=== PATIENT | male | born 1990 | race African-American/Black ===

== ENCOUNTER 2022-08-21 15:55 | Outpatient (CLI) | payer OTHER ==
[~2022-08-21] VITALS: Ht 172.7 cm; Wt 87.7 kg
[2022-08-21 15:55] VITALS: BP 133/77
[2022-08-21] MEDS ORDERED: VEDOLIZUMAB 300 MG in NS 250 ML IV ONE (16:00)
== END 2022-08-21 17:25 | disposition home or self-care (01) ==
LOC: M INFU 15:55
PROVIDERS: ATTEND Internal Medicine Gastroenterology
DX: K50.10 Crohn's disease of large intestine without complications (principal)
CPT/HCPCS: 96365; J3380

== ENCOUNTER 2022-09-04 15:10 | Outpatient (CLI) | payer OTHER ==
[~2022-09-04] VITALS: Ht 172.7 cm; Wt 88.6 kg
[2022-09-04] MEDS ORDERED: VEDOLIZUMAB 300 MG in NS 250 ML IV ONE (16:00)
[2022-09-04 16:16] VITALS: BP 144/74
[2022-09-04 17:03] VITALS: BP 166/72
== END 2022-09-04 17:05 | disposition home or self-care (01) ==
LOC: M INFU 15:10 → EDUNIT# 16:00 → M INFU 17:05
PROVIDERS: ATTEND Internal Medicine Gastroenterology
DX: K50.10 Crohn's disease of large intestine without complications (principal)
CPT/HCPCS: 96365; J3380

== ENCOUNTER 2022-10-02 16:24 | Outpatient (CLI) | payer OTHER ==
[~2022-10-02] VITALS: Ht 172.7 cm; Wt 91.0 kg
[2022-10-02] MEDS ORDERED: VEDOLIZUMAB 300 MG in NS 250 ML IV ONE (16:30)
[2022-10-02 16:33] VITALS: BP 146/95
[2022-10-02 17:19] VITALS: BP 136/88
== END 2022-10-02 17:20 | disposition home or self-care (01) ==
LOC: M INFU 16:24
PROVIDERS: ATTEND Internal Medicine Gastroenterology
DX: K50.10 Crohn's disease of large intestine without complications (principal)
CPT/HCPCS: 96365; J3380

== ENCOUNTER 2022-11-27 16:05 | Outpatient (CLI) | payer OTHER ==
[~2022-11-27] VITALS: Ht 172.7 cm; Wt 91.0 kg
[~2022-11-27 16:05] MED LIST: VEDOLIZUMAB 300 MG in NS 250 ML IV ONE
[2022-11-27 16:20] VITALS: BP 130/78
[2022-11-27 16:55] VITALS: BP 105/51
== END 2022-11-27 17:01 | disposition home or self-care (01) ==
LOC: M INFU 16:05
PROVIDERS: ATTEND Internal Medicine Gastroenterology
DX: K50.10 Crohn's disease of large intestine without complications (principal)
CPT/HCPCS: 96365; J3380

== ENCOUNTER 2023-01-22 16:04 | Outpatient (CLI) | payer OTHER ==
[~2023-01-22] VITALS: Ht 172.7 cm; Wt 91.0 kg
[2023-01-22 16:26] VITALS: BP 134/69
[2023-01-22 17:19] VITALS: BP 148/63
== END 2023-01-22 17:30 | disposition home or self-care (01) ==
LOC: M INFU 16:04
PROVIDERS: ATTEND Internal Medicine Gastroenterology
DX: K50.10 Crohn's disease of large intestine without complications (principal)
CPT/HCPCS: 96365; J3380

== ENCOUNTER 2023-03-19 14:45 | Outpatient (CLI) | payer OTHER ==
[~2023-03-19] VITALS: Ht 172.7 cm; Wt 89.0 kg
[2023-03-19] MEDS ORDERED: VEDOLIZUMAB 300 MG in NS 250 ML IV ONE (15:00)
[2023-03-19 15:12] VITALS: BP 134/68
== END 2023-03-19 15:30 | disposition home or self-care (01) ==
LOC: M INFU 14:45 → EDUNIT# 16:00
PROVIDERS: ATTEND Internal Medicine Gastroenterology
DX: K50.10 Crohn's disease of large intestine without complications (principal)
CPT/HCPCS: 96365; J3380

== ENCOUNTER 2023-09-13 13:00 | Outpatient (CLI) | payer OTHER ==
[~2023-09-13 13:00] MED LIST changes: +ALBUTEROL SULFATE 2.5MG/0.5ML INH NEB SOLN INH PRN; +EPINEPHrine INJ 1 MG/ML 1ML AMP IM PRN; +NS 1,000 ML IV SCH; +diphenhydrAMINE 50MG/ML VIAL IV PRN; +methylPREDNISolone 125MG 2ML VIAL IV PRN
[2023-09-13 13:22] VITALS: BP 139/60; O2SAT 96
[2023-09-13 14:30] VITALS: BP 132/56; O2SAT 98
== END 2023-09-13 14:40 | disposition home or self-care (01) ==
LOC: M INFU 13:00
PROVIDERS: ATTEND Internal Medicine Gastroenterology
DX: K50.10 Crohn's disease of large intestine without complications (principal)
CPT/HCPCS: 96365; J3380

== ENCOUNTER 2023-11-08 13:16 | Outpatient (CLI) | payer OTHER ==
[~2023-11-08] VITALS: Ht 175.3 cm; Wt 90.0 kg
[~2023-11-08 13:16] MED LIST changes: -ALBUTEROL SULFATE 2.5MG/0.5ML INH NEB SOLN INH PRN; -EPINEPHrine INJ 1 MG/ML 1ML AMP IM PRN; -NS 1,000 ML IV SCH; -diphenhydrAMINE 50MG/ML VIAL IV PRN; -methylPREDNISolone 125MG 2ML VIAL IV PRN
[2023-11-08 13:40] VITALS: BP 134/69; O2SAT 99
[2023-11-08 14:38] VITALS: BP 145/86; O2SAT 100
== END 2023-11-08 14:45 | disposition home or self-care (01) ==
LOC: M INFU 13:16
PROVIDERS: ATTEND Internal Medicine Gastroenterology
DX: K50.10 Crohn's disease of large intestine without complications (principal)
CPT/HCPCS: 96365; J3380

== ENCOUNTER 2024-01-03 08:35 | Outpatient (CLI) | payer OTHER ==
[~2024-01-03] VITALS: Ht 175.3 cm; Wt 90.9 kg
[2024-01-03 08:40] VITALS: BP 138/64; TEMP 96.4; O2SAT 99
[2024-01-03] MEDS: VEDOLIZUMAB 300 MG in NS 250 ML IV ONE (09:08)
[2024-01-03 09:46] VITALS: BP 132/60; O2SAT 98
== END 2024-01-03 09:45 | disposition home or self-care (01) ==
LOC: M INFU 08:35
PROVIDERS: ATTEND Internal Medicine Gastroenterology
DX: K50.90 Crohn's disease, unspecified, without complications (principal)
CPT/HCPCS: 96365; J3380

== ENCOUNTER → 2024-02-28 | Outpatient (CLI) | payer OTHER ==
[~2024-02-28] VITALS: Ht 175.3 cm; Wt 88.6 kg
[2024-02-28 13:30] VITALS: BP 113/57; O2SAT 100
[2024-02-28] MEDS: VEDOLIZUMAB 300 MG in NS 250 ML IV ONE (13:44)
[2024-02-28 15:22] VITALS: BP 133/64; O2SAT 97
== END ==
LOC: M INFU 13:08
PROVIDERS: ATTEND Internal Medicine Gastroenterology
DX: K50.10 Crohn's disease of large intestine without complications (principal)
CPT/HCPCS: 96365; J3380